=== PATIENT | male | born 1985 | race Caucasian/White ===

== ENCOUNTER 2018-04-20 10:37 | Emergency (ER) | payer MEDICARE, OTHER ==
[~2018-04-20] VITALS: Ht 188 cm; Wt 170.1 kg
[2018-04-20 10:44] VITALS: BP 135/69
--- NOTE | 2018-04-20 11:09 | PHYS DOC ---
Adult General Chief Complaint Chief Complaint: ANKLE PROBLEM HPI HPI Patient is a 33 year old male who presents with right ball of foot and heel pain that started last night. Patient states is worse with walking. States the pain is a burning at times and sometimes feels like this walking on a rock. Patient denies any injury but states that he just started a new job where he is up on his feet and walking a lot. He has had extensive surgeries to that right foot and ankle. Patient states he currently has hydrocodone at home and ibuprofen smokes marijuana. Patient has chronic back pain. Review of Systems Review of Systems Constitutional: Denies fever or chills [] Eyes: Denies change in visual acuity, redness, or eye pain [] HENT: Denies nasal congestion or sore throat [] Respiratory: Denies cough or shortness of breath [] Cardiovascular: No additional information not addressed in HPI [] GI: Denies abdominal pain, nausea, vomiting, bloody stools or diarrhea [] : Denies dysuria or hematuria [] Musculoskeletal: Right foot pain. Denies back pain or joint pain [] Integument: Denies rash or skin lesions [] Neurologic: Denies headache, focal weakness or sensory changes [] All other systems were reviewed and found to be within normal limits, except as documented in this note. Allergies Allergies Allergies Coded Allergies Type Severity Reaction Last Updated Verified amphetamine Allergy Intermediate 04/20/18 Yes codeine Allergy Intermediate pt takes hydrocodone regularly 04/20/18 Yes dextroamphetamine Allergy Intermediate 04/20/18 Yes divalproex sodium Allergy Intermediate 04/20/18 Yes Physical Exam Physical Exam Constitutional: Well developed, well nourished, no acute distress, non-toxic appearance. [] HENT: Normocephalic, atraumatic, bilateral external ears normal, oropharynx moist, no oral exudates, nose normal. [] Eyes: PERRLA, EOMI, conjunctiva normal, no discharge. [] Neck: Normal range of motion, no tenderness, supple, no stridor. [] Cardiovascular:Heart rate regular rhythm, no murmur [] Lungs & Thorax: Bilateral breath sounds clear to auscultation [] Abdomen: Bowel sounds normal, soft, no tenderness, no masses, no pulsatile masses. [] Skin: Warm, dry, no erythema, no rash. [] Back: No tenderness, no CVA tenderness. [] Extremities: Right foot tenderness, no cyanosis, no clubbing, ROM intact, no edema. [] Neurologic: Alert and oriented X 3, normal motor function, normal sensory function, no focal deficits noted. [] Psychologic: Affect normal, judgement normal, mood normal. [] Current Patient Data Vital Signs Vital Signs Date Time Temp Pulse Resp B/P (MAP) Pulse Ox O2 Delivery O2 Flow Rate FiO2 04/20/18 10:44 98.0 103 20 135/69 (91) 98 Room Air 98.0 EKG EKG [] Radiology/Procedures Radiology/Procedures Right foot Impressions: [facility] [address] [place], [place] [id number] IMAGING REPORT Signed PATIENT: JA TIERNEY ACCOUNT: [id number] : 1985 LOCATION: ER AGE: 33 SEX: M EXAM STATUS: REG ER ORD. PHYSICIAN: DAX SHAH APRN REASON: pain PROCEDURE: FOOT RIGHT 3V 3 view right foot, 3 view right ankle 04/20/2018 CLINICAL INDICATION: Right foot pain with no known trauma. History of internal fixation right ankle. COMPARISON: None. FINDINGS: 3 view right ankle: Internal fixation of the distal tibia with 3 intact orthopedic screws. Moderate bony remodeling of the medial tibiotalar articulation, likely posttraumatic. Ankle mortise and talar dome are maintained. No acute fracture or traumatic malalignment. Soft tissues are unremarkable. Minimal infracalcaneal sprain and enthesophyte formation at the insertion of the Achilles on the calcaneus. 3 view right foot: No acute fracture or traumatic malalignment. Joint spaces maintained. Normal bony alignment. The subtalar articulation is maintained. IMPRESSION: 1. No acute osseous abnormality. 2. Internal fixation at the ankle with intact hardware. Electronically signed by: Sneha Estrada MD (04/20/2018 11:45 AM) [facility] DICTATED and SIGNED BY: SNEHA ESTRADA MD DATE: 04/20/18 1142 Course & Med Decision Making Course & Med Decision Making Patient is a 33 year old male who presents with right ball of foot and heel pain that started last night. Patient states is worse with walking. States the pain is a burning at times and sometimes feels like this walking on a rock. Patient denies any injury but states that he just started a new job where he is up on his feet and walking a lot. He has had extensive surgeries to that right foot and ankle. Patient states he currently has hydrocodone at home and ibuprofen smokes marijuana. Patient has chronic back pain. Alert and oriented. Skin pink warm and dry. Walks with a steady gait. There is no swelling to the affected foot. There is some tenderness to the heel of the foot. Patient states he mostly feels the pain when he sits up and standing on the foot and walking. Pedal pulses strong and present. Denies any numbness or tingling. There is no deformity, bruising, swelling, lesions to the foot. There are no lumps or bumps on the foot. Cap refill less than 3 seconds. X-ray shows1. No acute osseous abnormality. 2. Internal fixation at the ankle with intact hardware Patient is experiencing most likely with called metatarsalgia. Patient does not have a primary care provider and will be given a primary care provider to follow -up with. Patient to continue taking ibuprofen is [place] for pain at home. Dragon Disclaimer Dragon Disclaimer This electronic medical record was generated, in whole or in part, using a voice recognition dictation system. Departure Departure Impression: Primary Impression: Metatarsalgia of right foot Disposition: 01 HOME, SELF-CARE Condition: STABLE Referrals: UNKNOWN PCP NAME (PCP) Patient Instructions: Plantar Fasciitis Additional Instructions: Follow-up her primary care provider. Medication for pain relief. DAX SHAH APRN Apr 20, 2018 11:09
--- NOTE | 2018-04-20 11:50 | RAD ---
3 view right foot, 3 view right ankle 04/20/2018 CLINICAL INDICATION: Right foot pain with no known trauma. History of internal fixation right ankle. COMPARISON: None. FINDINGS: 3 view right ankle: Internal fixation of the distal tibia with 3 intact orthopedic screws. Moderate bony remodeling of the medial tibiotalar articulation, likely posttraumatic. Ankle mortise and talar dome are maintained. No acute fracture or traumatic malalignment. Soft tissues are unremarkable. Minimal infracalcaneal sprain and enthesophyte formation at the insertion of the Achilles on the calcaneus. 3 view right foot: No acute fracture or traumatic malalignment. Joint spaces maintained. Normal bony alignment. The subtalar articulation is maintained. IMPRESSION: 1. No acute osseous abnormality. 2. Internal fixation at the ankle with intact hardware. Electronically signed by: Jean Sampson MD (04/20/2018 11:45 AM) [facility]
== END 2018-04-20 12:16 | disposition home or self-care (01) ==
LOC: ER 10:37
DX: M77.41 Metatarsalgia, right foot (principal); G89.29 Other chronic pain; M54.89 Other dorsalgia; F12.10 Cannabis abuse, uncomplicated; Z88.8 Allergy status to other drugs, medicaments and biological substances; Z88.5 Allergy status to narcotic agent
CPT/HCPCS: 73610; 73630; 99283

== ENCOUNTER 2018-09-19 14:01 | Emergency (ER) | payer MEDICAID, OTHER ==
[~2018-09-19] VITALS: Ht 190.5 cm; Wt 181.4 kg
[2018-09-19 14:24] VITALS: BP 162/78
--- NOTE | 2018-09-19 14:37 | PHYS DOC ---
Past Medical History Past Medical History: No Pertinent History, Other Additional Past Medical Histor: back pain Past Surgical History: Other Additional Past Surgical Histo: R ankle; right mastoid; ear tubes; left arm Alcohol Use: None Drug Use: Marijuana Adult General Chief Complaint Chief Complaint: LOWER BACK PAIN OR INJURY [facility] HPI Patient is a 33 year old male with a history of chronic back pain presents to the ED complaining of back pain that started worsening about one month ago. States that today he had trouble walking. States he went and saw Dr. Greco who sent him to the ED for MRI evaluation. Patient states to the nurse that he is out of his pain medication at home. Dr. Greco states that he gave him 90 pills. Describes his pain as sharp. Rates his pain as [address] Greco reports he had pain with full leg flexion but otherwise NV intact and no focal deficits. Denies fever, bowel/bladder changes, saddle anesthesia, radiating pain, weakness or paresthesias, nausea/vomiting, abdominal pain, chest pain or shortness of breath. Review of Systems Review of Systems Constitutional: Denies fever or chills [] Eyes: Denies change in visual acuity, redness, or eye pain [] HENT: Denies nasal congestion or sore throat [] Respiratory: Denies cough or shortness of breath [] Cardiovascular: No additional information not addressed in HPI [] GI: Denies abdominal pain, nausea, vomiting, bloody stools or diarrhea [] : Denies dysuria or hematuria [] Musculoskeletal: Complains of back pain. Denies joint pain [] Integument: Denies rash or skin lesions [] Neurologic: Denies headache, focal weakness or sensory changes [] All other systems were reviewed and found to be within normal limits, except as documented in this note. Allergies Allergies Allergies Coded Allergies Type Severity Reaction Last Updated Verified amphetamine Allergy Intermediate 04/20/18 Yes codeine Allergy Intermediate pt takes hydrocodone regularly 04/20/18 Yes dextroamphetamine Allergy Intermediate 04/20/18 Yes divalproex sodium Allergy Intermediate 04/20/18 Yes Physical Exam Physical Exam Constitutional: Well developed, well nourished, no acute distress, non-toxic appearance. [] HENT: Normocephalic, atraumatic Neck: Normal range of motion, no tenderness, supple, no stridor. [] Cardiovascular:Heart rate regular rhythm, no murmur [] Lungs & Thorax: Bilateral breath sounds clear to auscultation [] Abdomen: Bowel sounds normal, soft, no tenderness, no masses, no pulsatile masses. [] Skin: Warm, dry, no erythema, no rash. [] Back: Mild lumbar paraspinal tenderness, No overlying skin changes. + SLR. NV intact. no CVA tenderness. [] Extremities: No tenderness, no cyanosis, no clubbing, ROM intact, no edema. [] Neurologic: Alert and oriented X 3, normal motor function, normal sensory function, no focal deficits noted. DTR's intact[] Psychologic: Affect normal, judgement normal, mood normal. [] Current Patient Data Vital Signs Vital Signs Date Time Temp Pulse Resp B/P (MAP) Pulse Ox O2 Delivery O2 Flow Rate FiO2 09/19/18 14:24 97.5 93 18 162/78 (106) 98 Room Air 97.5 EKG EKG [] Radiology/Procedures Radiology/Procedures []PROCEDURE: LUMBAR SPINE WO CONTRAST EXAMINATION: Magnetic resonance imaging (MRI) of the lumbar spine without contrast 09/19/2018 2:37 PM HISTORY: Injury with history of back pain. Pain with walking. TECHNIQUE: Multiplanar multi-weighted MRI of the lumbar spine was performed without intravenous contrast using the standard lumbar spine protocol. Contrast information: None administered. COMPARISON: Images from July 30, 2010 MRI lumbar spine are not available. FINDINGS: There is minimal retrolisthesis of L3 on L4 and L4 on L5. Vertebral body heights are maintained. Modic type II end plate degenerative changes are identified posteriorly at L3-L4 and anteriorly at L4-L5. There is mild disc height loss at L3-L4, L4-L5 and L5-S1. Disc desiccation is identified at all levels of the lumbar spine, sparing L1-L2. Annular fissures identified at L3-L4, L4-L5 and L5-S1. Conus medullaris terminates at T12-L1. Distal spinal cord signal intensity is normal in all sequences. Abdominal aorta is normal in caliber. No suspicious retroperitoneal abnormality is identified. Visualized portions of the sacrum appear intact. L2-L3: There is mild disc bulge. No significant facet arthropathy. No neuroforaminal or spinal canal stenosis. L3-L4: There is a central disc extrusion extending inferiorly to the pedicle level of L4. There is mild facet arthropathy. There is mild bilateral neuroforaminal stenosis. There is moderate to severe spinal canal stenosis, exacerbated by epidural lipomatosis. L4-L5: There is mild disc bulge with left central disc protrusion. There is mild facet arthropathy. There is left lateral recess stenosis. There is mild spinal canal stenosis. L5-S1: There is central disc protrusion. There is mild facet arthropathy. No significant neuroforaminal stenosis. Mild spinal canal stenosis. IMPRESSION: 1. Central disc extrusion at L3-L4 resulting in moderate to severe spinal canal stenosis, exacerbated by epidural lipomatosis. 2. Left central disc protrusion at L4-L5 resulting in left lateral recess stenosis. 3. Central disc protrusion at L5-S1 with mild spinal canal stenosis. Course & Med Decision Making Course & Med Decision Making Pertinent Labs and Imaging studies reviewed. (See chart for details) Discussed case with Dr. Greco after receiving MRI report. Patient was able to get up and walk to the bathroom without assistance and with a steady gait during his stay. Dr. Greco asked if we would give patient a few pain medication pills until he can get in to see the neurosurgeon. Discussed the importance of follow- up with neurosurgery this week. Provided contact information/education. Discusse d reasons to return to the ED. Patient understands and agrees with plan. Patient ambulated out of the ED without assistance. Dragon Disclaimer Dragon Disclaimer This electronic medical record was generated, in whole or in part, using a voice recognition dictation system. Departure Departure Impression: Primary Impression: Spinal stenosis Additional Impression: Protrusion of intervertebral disc Disposition: 01 HOME, SELF-CARE Condition: STABLE Referrals: UNKNOWN PCP NAME (PCP) NOLA HENRY MD Patient Instructions: Back Pain, Adult, Spinal Stenosis Scripts Hydrocodone/Apap 5-325 (NORCO 5-325 TABLET) 1 Each Tablet 1 TAB PO BID for 5 Days, #10 TAB Prov: ALVARO ALDANA 09/19/18 Problem Qualifiers ALVARO ALDANA Sep 19, 2018 14:37
--- NOTE | 2018-09-19 15:58 | RAD ---
EXAMINATION: Magnetic resonance imaging (MRI) of the lumbar spine without contrast 09/19/2018 2:37 PM HISTORY: Injury with history of back pain. Pain with walking. TECHNIQUE: Multiplanar multi-weighted MRI of the lumbar spine was performed without intravenous contrast using the standard lumbar spine protocol. Contrast information: None administered. COMPARISON: Images from July 30, 2010 MRI lumbar spine are not available. FINDINGS: There is minimal retrolisthesis of L3 on L4 and L4 on L5. Vertebral body heights are maintained. Modic type II end plate degenerative changes are identified posteriorly at L3-L4 and anteriorly at L4-L5. There is mild disc height loss at L3-L4, L4-L5 and L5-S1. Disc desiccation is identified at all levels of the lumbar spine, sparing L1-L2. Annular fissures identified at L3-L4, L4-L5 and L5-S1. Conus medullaris terminates at T12-L1. Distal spinal cord signal intensity is normal in all sequences. Abdominal aorta is normal in caliber. No suspicious retroperitoneal abnormality is identified. Visualized portions of the sacrum appear intact. L2-L3: There is mild disc bulge. No significant facet arthropathy. No neuroforaminal or spinal canal stenosis. L3-L4: There is a central disc extrusion extending inferiorly to the pedicle level of L4. There is mild facet arthropathy. There is mild bilateral neuroforaminal stenosis. There is moderate to severe spinal canal stenosis, exacerbated by epidural lipomatosis. L4-L5: There is mild disc bulge with left central disc protrusion. There is mild facet arthropathy. There is left lateral recess stenosis. There is mild spinal canal stenosis. L5-S1: There is central disc protrusion. There is mild facet arthropathy. No significant neuroforaminal stenosis. Mild spinal canal stenosis. IMPRESSION: 1. Central disc extrusion at L3-L4 resulting in moderate to severe spinal canal stenosis, exacerbated by epidural lipomatosis. 2. Left central disc protrusion at L4-L5 resulting in left lateral recess stenosis. 3. Central disc protrusion at L5-S1 with mild spinal canal stenosis. Electronically signed by: Christina Sutton MD (09/19/2018 3:56 PM) [id number]
[2018-09-19] MEDS ORDERED: HYDR-3164 PO ×2 (16:34→16:40)
== END 2018-09-19 17:05 | disposition home or self-care (01) ==
LOC: ER 14:01
DX: M48.07 Spinal stenosis, lumbosacral region (principal); M51.27 Other intervertebral disc displacement, lumbosacral region; Z88.5 Allergy status to narcotic agent; Z88.8 Allergy status to other drugs, medicaments and biological substances
CPT/HCPCS: 72148; 99284-25

== ENCOUNTER 2018-11-11 13:26 | Emergency (ER) | payer MEDICAID ==
[~2018-11-11 13:26] MED LIST: HYDR-3164 PO
== END 2018-11-11 13:42 | disposition left against medical advice (07) ==
LOC: ER 13:26
DX: G89.29 Other chronic pain (principal); M54.5 Low back pain; Z53.21 Procedure and treatment not carried out due to patient leaving prior to being seen by health care provider